=== PATIENT | male | born 1960 | race Caucasian/White ===

== ENCOUNTER → 2020-04-23 10:00 | Outpatient (BNVA) | payer BC, SELFPAY | PROVIDERS: Family Provider Nurse Practitioner Family; PCP Nurse Practitioner Family; Visit Provider Nurse Practitioner Family | DX: Z00.00 Encounter for general adult medical examination without abnormal findings (principal); Z12.5 Encounter for screening for malignant neoplasm of prostate; Z13.220 Encounter for screening for lipoid disorders; I10 Essential (primary) hypertension; Z12.11 Encounter for screening for malignant neoplasm of colon | CPT/HCPCS: 80053; 80061; G0103 ==

== ENCOUNTER → 2022-01-20 09:53 | Outpatient (BNVA) | payer BC, SELFPAY | PROVIDERS: Family Provider Nurse Practitioner Family; PCP Nurse Practitioner Family; Visit Provider Nurse Practitioner Family | DX: I10 Essential (primary) hypertension (principal) | CPT/HCPCS: 80053; 80061; 84443 ==

== ENCOUNTER 2023-03-12 14:13 | Outpatient (CLI) | payer OTHER, SELFPAY ==
--- NOTE | 2023-03-12 14:20 | XR_ITS ---
WS: [id number] XR knee LT 3V* [id number] REASON FOR EXAM: M25.562 - Pain in left knee FINDINGS: No acute fracture or focal bone lesion. Moderate narrowing of the medial knee joint space with moderate subchondral sclerosis and marginal os teophytosis. The lateral knee joint space is intact and relatively well preserved with mild subchondral sclerosis. The patellofemoral joint space is narrowed with significant subchondral sclerosis and osteophytosis o f the patella and opposing femoral condyles. There are 3 bony bodies posterior lateral to the lateral tibial plateau. They have the appearance of loose bodies however there relation to the joint spaces unusual. IMPRESSION: Moderate osteoarthritis of the left knee.
--- NOTE | 2023-03-12 14:20 | XR_ITS ---
WS: [email or web address] XR knee RT 3V* [id number] REASON FOR EXAM: M25.561 - Pain in right knee FINDINGS: No acute fracture. Moderate narrowing of the medial knee joint space with moderate subchondral sclerosis and marginal os teophytosis. Subarticular lucency with sclerotic margin in the medial femoral condyle is likely subch ondral degenerative cystic change/geode. Lateral knee joint space is intact and well preserved. Mild narrowing of the patellofemoral joint space with moderate subchondral sclerosis and osteophytosi s of the patella. IMPRESSION: Moderate osteoarthritis of the right knee.
== END 2023-03-12 14:14 | disposition home or self-care (01) ==
LOC: RAD 14:15
PROVIDERS: PCP Nurse Practitioner Family; Visit Provider Nurse Practitioner Family
DX: M17.0 Bilateral primary osteoarthritis of knee (principal); R53.83 Other fatigue; I10 Essential (primary) hypertension; E78.5 Hyperlipidemia, unspecified
CPT/HCPCS: 73562; 80053; 80061; 85025

== ENCOUNTER 2023-03-31 12:47 | Outpatient (CLI) | payer BC, SELFPAY | END 2023-03-31 12:48 | disposition home or self-care (01) | LOC: RAD 12:48 | PROVIDERS: PCP Nurse Practitioner Family; Visit Provider Nurse Practitioner Family | DX: Z53.9 Procedure and treatment not carried out, unspecified reason (principal) ==

== ENCOUNTER 2023-04-01 06:04 | Outpatient (CLI) | payer BC, SELFPAY ==
--- NOTE | 2023-04-01 06:30 | USCV_ITS ---
Zeb Zuleta Age: 62 Gender: M : 1960 Exam Date: 04/01/2023 06:18 Ordering Phys: Heavenly JettP Technologist: Graham Paul Exam Location: [facility] – [place] Indication: htn Aortic Velocity @ SMA (cm/s) 160 RIGHT KIDNEY LEFT KIDNEY Velocity (cm/s) Velocity (cm/s) Sys/[place] Sys/[place] Resistive Index Resistive Index 114.2 / 36.2 0.68 Proximal Renal Artery 68.6 / 17.3 0.75 61.0 / 19.4 0.68 Mid Renal Artery 68.6 / 22.1 0.68 101.2 / 24.9 0.75 Distal Renal Artery 60.9 / 15.5 0.75 192.7 / 52.7 0.73 Hilar 50.1 / 13.1 0.74 108.1 / 38.8 0.64 Upper Pole 62.7 / 13.7 0.78 65.1 / 16.7 0.74 Mid Pole 82.4 / 24.5 0.70 88.9 / 23.9 0.73 Lower Pole 80.0 / 24.5 0.69 0.70 Renal Aortic Ratio 0.43 Accleration Index (cm/sec2) 3880.0 Hilar 1300.0 0 0 1636.0 Upper Pole 1041.0 0 0 1600.0 Mid Pole 2514.0 0 0 762.00 Lower Pole 1003.0 0 127.1 Kidney Length (mm) 108.6 FINDINGS No evidence of abdominal aortic aneurysm. There is no evidence of hemodynamically significant right renal artery stenosis. There is no evidence of hemodynamically significant left renal artery stenosis. Left renal cyst, 3.4 cm. CONCLUSIONS No evidence of hemodynamically significant renal artery stenosis bilaterally. Dr. Gris Fine DO (Electronically Signed) Final Date: 01 April 2023 09:11 S
== END 2023-04-01 06:05 | disposition home or self-care (01) ==
PROVIDERS: PCP Nurse Practitioner Family; Visit Provider Nurse Practitioner Family
DX: I10 Essential (primary) hypertension (principal)
CPT/HCPCS: 93975

== ENCOUNTER → 2023-09-28 08:21 | Outpatient (BNVA) | payer BC, SELFPAY | PROVIDERS: PCP Nurse Practitioner Family; Visit Provider Nurse Practitioner Family | DX: I10 Essential (primary) hypertension (principal); E78.5 Hyperlipidemia, unspecified | CPT/HCPCS: 80053; 80061 ==

== ENCOUNTER → 2024-02-01 11:34 | Outpatient (BNVA) | payer BC, SELFPAY | PROVIDERS: PCP Nurse Practitioner Family; Visit Provider Nurse Practitioner Family | DX: E78.2 Mixed hyperlipidemia (principal); I10 Essential (primary) hypertension | CPT/HCPCS: 80053; 80061 ==